=== PATIENT | male | born 1995 | race Caucasian/White ===

== ENCOUNTER 2023-07-02 05:58 | Observation (INO) ==
--- NOTE | 2023-06-14 15:25 | PAT Medication Instructions ---
Medication Instructions Date of Service June 14, 2023 Home Medications ascorbic acid (vitamin C) 500 mg tablet (Vitamin C) 500 mg PO QAM garlic 100 mg tablet 100 mg PO QAM multivitamin 1 tab PO QAM potassium 99 mg tablet 99 mg PO QAM STOP taking 2 weeks before surgery garlic 100 mg tablet 100 mg PO QAM DO NOT take the morning of surgery ascorbic acid (vitamin C) 500 mg tablet (Vitamin C) 500 mg PO QAM multivitamin 1 tab PO QAM potassium 99 mg tablet 99 mg PO QAM OTHERWISE NOTHING TO EAT OR DRINK AFTER MIDNIGHT Other Notes If you have any questions please call us at [phone] or [phone] or [phone] or [phone]
--- NOTE | 2023-06-17 14:49 | Anesthesiology Consultation ---
Date of Service June 17, 2023 Assessment & Plan (1) Encounter for pre-operative examination: Chart Review Chart Review: Acceptable Risk for Surgery and Patient seen in Pre Admission Testing Per PAT appt on 06/17/23, no recent illness/disease exposures, illness related symptoms, or recent illness/disease positive tests. Will leave to surgeon's discretion if preop Covid testing needed Teaching & Discussion Pre-Anesthesia Teaching/Discussion Notes: Instructed NPO after midnight before surgery,except medications with 15 cc of water. Medication instructions provided according to the PAT guidelines. History Surgery Operation Date: 07/02/23 07:45 Proposed Procedures p L5-S1 Decompression and Fusion - Boris Jesus DO Height/Weight Height: 6 ft 2 in Weight: 101.9 kg Allergies Allergy/AdvReac Type Severity Reaction Status Date / Time No Known Allergies Allergy Verified 06/14/23 14:36 Medications Home Medications Medication Instructions Recorded Confirmed Last Taken ascorbic acid (vitamin C) 500 mg 500 mg PO QAM 06/14/23 06/14/23 Unknown tablet (Vitamin C) garlic 100 mg tablet 100 mg PO QAM 06/14/23 06/14/23 Unknown multivitamin 1 tab PO QAM 06/14/23 06/14/23 Unknown potassium 99 mg tablet 99 mg PO QAM 06/14/23 06/14/23 Unknown Past Medical History Medical History Awareness under anesthesia during wisdom tooth excision Deviated nasal septum Herniated lumbar intervertebral disc Suspected sleep apnea Per patient - depending on position- nasal congestion can occur due to deviated septum so has to breath through mouth; occ snoring - possible witnessed apnea - no sleep study Exercise / Class Metabolic Activity II 4-5 Yardwork/Stairs/Walk up hill (one flight of stairs - no chest pain or SOB ) Past Surgical History Surgical History History of excision of pilonidal cyst History of wisdom tooth extraction Past Anesthesia History No Hx of Anesthesia Complications (with exception to awareness with wisdom extraction ) and No Family Hx of Anesthesia Complications History of PONV No Hx of PONV and No Hx of Motion Sickness Social History Smoking Status: Never smoker Do You Dip or Chew Tobacco: No Hx Alcohol Use: Yes alcohol intake frequency: a few times a month Hx Substance Use: No substance use type: does not use Review of Systems Patient denies chest pain, shortness of breath, dyspnea on exertion, reflux, cough, wheezing, palpitations. No hx of seizures, stroke, [place]. No hx of blood clots or blood transfusions Physical Exam Vital Signs VITALS BP 130/76 P 88 TEMP 98.7 SP02 98% RESP 16 Constitutional no acute distress ENMT Mouth: no TMJ clicking Thyromental Distance: > or= 3.5 Finger Breadths (3.5) Mallampati Class: III Neck + facial hair (advised to shave ); neck extension not limited Respiratory normal respiratory effort; no respiratory distress Auscultation: lungs clear to auscultation bilaterally; no wheezes Cardiovascular Rate/Rhythm: regular rate and regular rhythm Heart Sounds: no murmur Vessels: no carotid bruit Musculoskeletal Spine: no pain with cervical ROM Extremities: extremities normal to inspection Psychiatric Orientation: alert Lab Results Anesthesia Preop Results Results Anesthesia Widget: WBC 7.63 K/ul (4.8-10.8) 06/17/23 Hgb 16.6 g/dl (14.0-18.0) 06/17/23 Hct 48.5 % (42.0-52.0) 06/17/23 Plt 235 K/uL (130-400) 06/17/23 Na 144 mmol/L (136-145) 06/17/23 K 4.2 mmol/L (3.5-5.1) 06/17/23 Cl 108 mmol/L (98-107) H 06/17/23 CO2 30 mmol/L (21-32) 06/17/23 BUN 15 mg/dl (6-23) 06/17/23 Creat 0.86 mg/dl (0.6-1.4) 06/17/23 Glucose Level 98 mg/dl (70-99(Fasting)) 06/17/23 PT 11.8 Seconds (9.0-12.0) 06/17/23 PTT 29 Seconds (21-31) 06/17/23 INR 1.1 (0.9-1.1) 06/17/23 Urine Color Yellow 06/17/23 Urine Appearance Turbid (Clear) A 06/17/23 Urine pH 8.0 (4.5-7.5) H 06/17/23 Urine Specific Novinger 1.019 (1.000-1.030) 06/17/23 Urine Protein Negative (Negative) 06/17/23 Urine Glucose (UA) Negative (Negative) 06/17/23 Urine Ketones Negative (Negative) 06/17/23 Urine Blood Negative (Negative) 06/17/23 Urine Nitrite Negative (Negative) 06/17/23 Urine Bilirubin Negative (Negative) 06/17/23 Urine Urobilinogen Negative (Negative) 06/17/23 Urine Leukocyte Esterase Negative (Negative) 06/17/23 Urine WBC (Auto) 0 /hpf (0-5) 06/17/23 Urine RBC (Auto) 5-10 /hpf (0-4) H 06/17/23 Urine Hyaline Casts (Auto) 0 /lpf (0-5) 06/17/23 Urine Epithelial Cells (Auto) 0-5 /lpf (0-5) 06/17/23 Urine Bacteria (Auto) Negative (Negative) 06/17/23 Blood Type A Positive 06/17/23 Antibody Screen NEGATIVE 06/17/23 Testing Electrocardiogram Date: 06/17/23 Findings: + NSR @ (78bpm) Normal EKG per cardio Chest X-Ray Date: 06/17/23 Findings: + NAD
[2023-07-02] MEDS: LR 60ML/HR IV SCH (06:52)
[2023-07-02] MEDS: GABAPENTIN 900 MG DOSE PO SCH (06:52)
[2023-07-02] MEDS: LR 15ML/HR IV SCH (06:52)
[2023-07-02] MEDS: ACETAMINOPHEN 500 MG TAB PO SCH (06:53)
[2023-07-02] MEDS ORDERED: ONDANSETRON INJ 2 MG/ML 2 ML VIAL ONE (06:53)
[2023-07-02] MEDS ORDERED: MIDAZOLAM HCL 1 MG/ML 2ML VIAL ONE (06:53)
[2023-07-02] MEDS ORDERED: DEXAMETHASONE SOD INJ 4 MG/ML VIAL ONE (06:53)
[2023-07-02] MEDS ORDERED: fentaNYL citrate PF 100 MCG/2 ML VIAL ONE (06:53)
[2023-07-02] MEDS ORDERED: LIDOCAINE 2% 2 ML VIAL/AMP(20MG/ML) INFIL ONE (06:53)
[2023-07-02] MEDS: CeleBREX 200 MG CAP PO SCH (06:53)
[2023-07-02] MEDS ORDERED: ROCURONIUM BROMIDE 10 MG/ML 5 ML VIAL IV ONE (06:53)
[2023-07-02] MEDS ORDERED: PROPOFOL IV EMULSION 10 MG/ML 20 ML VIAL IV ONE ×2 (06:53→09:49)
[2023-07-02] MEDS ORDERED: HYDROmorphone INJ 2 MG/ML SYR/VIAL IV PRN (06:56)
[2023-07-02] MEDS ORDERED: ATROPINE SULFATE 0.1 MG/ML 10ML SYR IV PRN (06:56)
[2023-07-02] MEDS ORDERED: ePHEDrine sulfate 50 MG/ML AMP IV PRN (06:56)
[2023-07-02] MEDS ORDERED: KETAMINE HCL 10MG/ML SYR ONE (07:01)
--- NOTE | 2023-07-02 07:47 | History & Physical Bridge Note ---
Date of Service July 02, 2023 History & Physical Bridge Note I have examined the patient, reviewed the History & Physical and in the interval since the performance of the History & Physical I have noted the following changes of clinical significance: no changes noted
--- NOTE | 2023-07-02 07:48 | History & Physical Report ---
Date of Service July 02, 2023 Assessment & Plan (1) Neurogenic claudication due to lumbar spinal stenosis: Plan: L5-S1 decompression and fusion History of Present Illness Chief Complaint: Back and leg pain Primary Care Provider: NO PCP This is a 27-year-old male presents with chronic persistent back and leg pain Patient's course of nonoperative care is here for surgical invention. Allergies Allergy/AdvReac Type Severity Reaction Status Date / Time No Known Allergies Allergy Verified 07/02/23 06:28 Home Medications Medication Instructions Recorded Confirmed Type ascorbic acid (vitamin C) 500 mg 500 mg PO QAM 06/14/23 07/02/23 History tablet (Vitamin C) garlic 100 mg tablet 100 mg PO QAM 06/14/23 07/02/23 History multivitamin 1 tab PO QAM 06/14/23 07/02/23 History potassium 99 mg tablet 99 mg PO QAM 06/14/23 07/02/23 History Past Med/Surg History Medical History Awareness under anesthesia during wisdom tooth excision Deviated nasal septum Herniated lumbar intervertebral disc Suspected sleep apnea Per patient - depending on position- nasal congestion can occur due to deviated septum so has to breath through mouth; occ snoring - possible witnessed apnea - no sleep study Surgical History History of excision of pilonidal cyst History of wisdom tooth extraction Social History Smoking Status: Never smoker Second Hand Exposure: No; Do You Dip or Chew Tobacco: No; Hx Alcohol Use: Yes Hx Substance Use: No Preferred Language: Grenadian Communication Ability: Effective Fan Blade Truer Required: No Beliefs That Will Affect Care: None Current Living Situation: Spouse Feels Safe at Home: Yes Safety Concerns: Feels Safe At This Time Assistive Devices: Glasses Physical Exam Physical Exam: Patient is alert and oriented Heart regular rhythm Lungs clear Results & Data Results & Data Vital Signs (Past 12 Hours) Vital Signs Temp Pulse Resp BP Pulse Ox O2 Del Method 07/02/23 06:29 36.8 C 87 18 130/89 98 Room Air
[2023-07-02] MEDS: ceFAZolin 2000MG 2,000 MG/15 ML SYR IV SCH ×2 (07:56→15:21)
[2023-07-02] MEDS ORDERED: HYDROmorphone INJ 2 MG/ML SYR/VIAL ONE (08:17)
[2023-07-02] MEDS: ceFAZolin 330 MG/ML 1 GM VIAL ONE (08:32)
[2023-07-02] MEDS: BUPIVACAINE/EPINEPHRINE 0.5% MPF 1:200,000 30 ML VIAL ONE (08:33)
[2023-07-02] MEDS ORDERED: SUGAMMADEX SODIUM 200 MG/2 ML VIAL IV ONE (08:41)
[2023-07-02] MEDS: FLOSEAL HEMOSTATIC MATRIX 10ML TOP ONE (09:34)
--- NOTE | 2023-07-02 09:41 | Operative Report ---
Post Operative Report Pre & Post Diagnosis Operation Date: 07/02/23 07:45 Pre-Op Diagnosis: Neurogenic claudication due to lumbar spinal stenosis, Herniated lumbar intervertebral disc Post-Op Diagnosis: Neurogenic claudication due to lumbar spinal stenosis, Herniated lumbar intervertebral disc I identified the patient and participated in the time-out.: Yes Procedure Operation Date: 07/02/23 07:45 Actual Procedures #1 lumbar decompression bilateral medial facetectomies and foraminotomies L4-5 L5-S1. #2 posterior spinal fusion L5-S1. #3 placed posterior instrumentation L5-S1. #4 interbody fusion L5-S1. #5 placement of Spira 14 x 26 mm x 2 at L5- S1. #6 placement locally harvested morselized autograft in the posterior gutters. #7 placement infuse collagen sponge combined with Koros in the posterior gutters and interbody space. Surgeon Boris Jesus DO Certified Welder Agapito Morales Estimated Blood Loss 100 Findings Consistent with Post-Op Diagnosis Specimens None Indications This is a 27-year-old male presents above-mentioned diagnosis after failed course of nonoperative care is here for surgical invention. Description of Procedure Patient met with identified informed consent obtained. Patient was then taken to the operative suite underwent patient placed in a prone position on the Gagan table atop the Waldemar frame. All bony prominences well-padded eyes inspected to ensure no external pressure placed upon the. This point lumbar spine was prepped and draped in a sterile fashion. Sharp dissection with the assistance of Bovie cautery performed down to and exposing the lamina transverse processes of L5 and the sacral ala bilaterally. From caudal cephalad fashion complete laminectomy L5 partial laminectomy of L4 was performed including bilateral medial facetectomies and foraminotomies addressing severe spinal stenosis as well as disc herniation on the right. After complete decompression pedicle screws were placed in L5-S1 levels bilaterally with assistance of fluoroscopy in the process hilda placed. By way of a transforaminal approach on the right discectomy of L5-S1 was performed endplates guided to subcortically bone and a 14 x 26 mm Spira cage filled with Koros tapped into position. Then proceeded to the left transforaminal region completed the discectomy curetted the endplates to subcortical bleeding bone and placed a second 14 x 26 mm Spira cage with Koros into position. The rods were then compressed locked in final position bilaterally. The transverse processes of L5-S1 levels burred to subcortical bleeding bone. Infuse collagen sponge combined with Koros and local autograft placed in the posterior gutters. 15 round MAGALYS inserted. The incision was then closed with 1 Vicryl fascia 2-0 Vicryl subcutaneously 4 Monocryl for final skin closure. Steri-Strips sterile dressings placed. Patient waken taken PACU stable condition. Please note spinal cord monitoring was utilized at the procedure no changes noted. Lastly Agapito Morales was present at the entire surgery involved the patient positioning complex portion of the surgery and final skin closure. I attest to the content of the Intraoperative Record and any orders documented therein. Any exceptions are noted below.
[2023-07-02] MEDS: fentaNYL citrate PF 100 MCG/2 ML VIAL IV PRN (10:25)
[2023-07-02] MEDS: ONDANSETRON INJ 2 MG/ML 2 ML VIAL IV PRN (10:28)
--- NOTE | 2023-07-02 10:39 | Fluoroscopy Report ---
FL lumbar spine 2-3V CLINICAL HISTORY: L5-S1 DECOMP/FUSION COMPARISON STUDY: None. FLUOROSCOPY TIME: 20 seconds. Ka, r: 16.06 mGy FLUOROSCOPIC IMAGES: 2 FINDINGS: Fluoroscopy was provided during L5-S1 posterior decompression, discectomy and bilateral ped icle screw fusion. Hardware is intact. There are no unexpected radiopaque foreign bodies. IMPRESSION: Fluoroscopy provided during L5-S1 posterior decompression, discectomy and fusion. ACT 112: Negative or not required by law. Electronically signed by: Jacobo Ji M.D. 07/02/2023 10:38 AM
[2023-07-02] MEDS ORDERED: ONDANSETRON 4 MG OD TAB PO PRN (11:10)
[2023-07-02] MEDS ORDERED: ALUMINUM/MAGNESIUM SUSP 30 ML UDC PO PRN (11:10)
[2023-07-02] MEDS ORDERED: bisacodyL 10 MG SUPP PR PRN (11:10)
[2023-07-02] MEDS ORDERED: ACETAMINOPHEN 1,000 MG/100 ML VIAL IV PRN (11:10)
[2023-07-02] MEDS ORDERED: ONDANSETRON INJ 2 MG/ML 2 ML VIAL IV PRN (11:10)
[2023-07-02] MEDS ORDERED: diphenhydrAMINE Capsule 25 MG CAP PO PRN (11:10)
[2023-07-02] MEDS ORDERED: HYDROmorphone INJ 1 MG/ML SYRINGE IV PRN (11:10)
[2023-07-02] MEDS ORDERED: METOCLOPRAMIDE HCL INJ 5 MG/ML 2 ML VIAL IV PRN (11:10)
[2023-07-02] MEDS ORDERED: NALOXONE HCL 0.4 MG/1 ML VIAL/CARP IV PRN (11:10)
[2023-07-02] MEDS ORDERED: LORazepam 0.5 MG TAB PO PRN (11:10)
[2023-07-02] MEDS ORDERED: DO NOT ADMINISTER FLU VACCINE PRN (11:10)
[2023-07-02] MEDS ORDERED: traMADol HCL 50 MG TABLET PO PRN (11:10)
[2023-07-02] MEDS ORDERED: PROMETHAZINE HCL 12.5 MG in SODIUM CHLORIDE 0.9% 50 ML IV PRN (11:10)
[2023-07-02] MEDS ORDERED: HYDROmorphone INJ 0.5 MG/0.5 ML SYR IV PRN (11:10)
[2023-07-02] MEDS ORDERED: SOD PHOSPHATE/SOD BIPHOSPHATE ENEMA 132 ML BTL PR PRN (11:10)
[2023-07-02] MEDS ORDERED: ACETAMINOPHEN 500 MG TAB PO PRN (11:10)
[2023-07-02] MEDS ORDERED: MAGNESIUM HYDROXIDE SUSP 30 ML UDC PO PRN (11:10)
[2023-07-02] MEDS ORDERED: FAMOTIDINE 20 MG TAB PO PRN (11:10)
[2023-07-02] MEDS ORDERED: LORazepam 0.5 MG in SYRINGE 0.25 ML IV PRN (11:10)
[2023-07-02] MEDS ORDERED: DO NOT ADMINISTER PNEUMOCOCCAL VACCINE PRN (11:10)
[2023-07-02] MEDS ORDERED: hydrOXYzine HCl 25 MG TAB PO PRN (11:10)
[2023-07-02] MEDS: KETOROLAC 30 MG/ML VIAL IV SCH (11:34)
[2023-07-02] MEDS: LACTATED RINGER'S 1,000 ML IV SCH (11:34)
[2023-07-02] MEDS: oxyCODONE HCL IR 5 MG TAB (IMMEDIATE RELEASE) PO PRN (15:26)
[2023-07-02] MEDS: DOCUSATE SODIUM/SENNA 50/8.6MG TAB PO SCH (21:15)
[2023-07-03] MEDS: POLYETHYLENE (MIRALAX) 17 GM PACK PO SCH (05:20)
[2023-07-03 07:38] LABS: Basophils # (auto) 0.03 K/uL (0.00-0.20); Basophils % (auto) 0.2 %; Eosinophils # (auto) 0.03 K/uL (0.00-0.50); Eosinophils % (auto) 0.2 %; Hematocrit (blood only) 45.7 % (42.0-52.0); Hemoglobin 15.3 g/dl (14.0-18.0); Immature Granulocytes # (auto) 0.26 K/uL (0.01-0.20); Immature Granulocytes % (auto) 1.4 %; Lymphocytes # (auto) 2.41 K/uL (1.20-3.40); Lymphocytes % (auto) 13.2 %; Mean Corpuscular Hemoglobin 30.8 pg (25.0-34.0); Mean Corpuscular Hgb Conc 33.5 g/dL (32.0-36.0); Mean Corpuscular Volume 92.1 fL (80.0-100.0); Monocytes # (auto) 1.71 K/uL (0.11-0.59); Monocytes % (auto) 9.4 %; Neutrophils # (auto) 13.81 K/uL (1.40-6.50); Neutrophils % (auto) 75.6 %; Platelet Count 221 K/uL (130-400); RDW Coefficient of Variation 12.7 % (11.5-14.5); RDW Standard Deviation 42.6 fL (36.4-46.3); Red Blood Count 4.96 M/uL (4.70-6.10); White Blood Count 18.25 K/ul (4.8-10.8)
[2023-07-03 08:01] LABS: Anion Gap 6 (3-11); Blood Urea Nitrogen 16 mg/dl (6-23); Calcium 9.2 mg/dl (8.6-10.3); Carbon Dioxide 28 mmol/L (21-32); Chloride 108 mmol/L (98-107); Creatinine Clr Calc Pharmacy 154.7 ml/min; Est GFR (African American) 133.9 ml/min; Est GFR (Non-African American) 115.5 ml/min; Glucose 108 mg/dl (70-99(Fasting)); Sodium 142 mmol/L (136-145)
[2023-07-03] MEDS: MULTIVITAMIN TAB PO SCH (08:21)
[2023-07-03] MEDS: dexAMETHasone 6 MG in SYRINGE 0 ML IV SCH (08:22)
[2023-07-03] MEDS: ASCORBIC ACID 500 MG TAB PO SCH (08:22)
--- NOTE | 2023-07-03 08:40 | Orthopedic Progress Note ---
Date of Service July 03, 2023 Assessment & Plan (1) Neurogenic claudication due to lumbar spinal stenosis: Plan: Jack is. Postoperative day 1 status post TLIF L5-S1. He is doing well. Will start physical therapy today. DVT prophylaxis is in the form teds and SCDs. Continue with aggressive bowel regimen. Maintain MAGALYS drain. Anticipate discharge home Wednesday Admission and Anticipated Discharge Date Admission Date: July 02, 2023 Subjective Jack is postoperative day 1 status post TLIF L5-S1. He is doing well. No radicular leg pain. Back pain is controlled. MAGALYS drain output last shift was 40 cc. Review of Systems Review of Systems: All systems reviewed & are unremarkable except as noted in HPI & below Physical Exam Physical Exam: He sitting in a chair eating breakfast in no acute distress Alert and oriented x 3 Lumbar dressing is clean dry and intact with functioning MAGALYS drain calf soft and nontender bilaterally strength intact bilateral lower extremities Results & Data Vital Signs (Past 12 Hours) Vital Signs Temp Pulse Resp BP Pulse Ox O2 Del Method 07/03/23 07:38 37.1 C 75 16 121/71 100 Room Air 07/03/23 04:10 36.8 C 75 16 115/69 99 Room Air 07/02/23 23:13 36.9 C 83 16 120/69 97 Room Air
[2023-07-03] MEDS ORDERED: NON-FORMULARY MEDICATION (Potassium 99 mg Tablet) PO SCH (09:00)
[2023-07-03] MEDS ORDERED: GARLIC 100 MG PO SCH (09:00)
--- NOTE | 2023-07-04 08:28 | Orthopedic Progress Note ---
Date of Service July 04, 2023 Assessment & Plan (1) Neurogenic claudication due to lumbar spinal stenosis: Plan: Jack is postoperative day 2 status post TLIF L5-S1. Will continue with physical therapy and ambulation today. Continue with pain control. Maintain MAGALYS drain. DVT prophylaxis is in the form teds and SCDs. Anticipate discharge home tomorrow Admission and Anticipated Discharge Date Admission Date: July 02, 2023 Subjective Jack is postoperative day 2 status post TLIF L5-S1. Back pain is controlled. Radicular leg pain has resolved. He had a bowel movement. MAGALYS drain output last shift was 20 cc. Yesterday he has been Amling in the halls over 20 times. Review of Systems Review of Systems: All systems reviewed & are unremarkable except as noted in HPI & below Physical Exam Physical Exam: Sitting in a chair eating breakfast in no acute distress Alert and oriented x 3 Lumbar dressing is clean dry and intact with functioning MAGALYS drain calf soft and nontender bilaterally strength intact bilateral lower extremities Results & Data Vital Signs (Past 12 Hours) Vital Signs Temp Pulse Resp BP Pulse Ox O2 Del Method 07/04/23 07:58 37.2 C 81 16 135/78 99 Room Air
--- NOTE | 2023-07-05 09:45 | Discharge Summary ---
Date of Service July 05, 2023 Admission HPI Per Admitting Provider This is a 27-year-old male presents with chronic persistent back and leg pain Patient's course of nonoperative care is here for surgical invention. Admission Exam (Per Admitting) Constitutional WD/WN, vitals as above Eyes normal visual perez by confrontation ENMT external ear and nose normal, oropharynx normal Neck normal visual inspection Respiratory normal respiratory effort Cardiovascular Extremities: normal capillary refill Gastrointestinal (Abdomen) Inspection/Auscultation: abdomen normal to inspection Musculoskeletal Spine: + pain with thoraco-lumbar ROM Extremities: extremities normal to inspection and strength 5/5 throughout Skin no rashes, warm and dry Neurologic normal touch/pain/proprioception and moves all extremities Psychiatric A+Ox3, euthymic affect Eye Contact: good eye contact Discharge Data Procedures Performed Operation Date: 07/02/23 07:45 Actual Procedures p L5-S1 Decompression and Fusion, Spinal Cord Monitoring(Not Applicable) - Boris Jesus DO Hospital Course (1) Neurogenic claudication due to lumbar spinal stenosis: Jack is being discharged home postoperative day 3 status post TLIF L5-S1. He had an uncomplicated postoperative course. Pain has been controlled. Lab values stable. He had a bowel movement. He is made great progress daily and physical therapy as well as ambulating the hallways. Discharge Instructions ACTIVITY RECOMMENDATIONS: SELF CARE INSTRUCTIONS AFTER THORACIC/LUMBAR FUSIONS 1. You may walk to your tolerance. It is good exercise for your legs and back. Expect some back and intermittent leg aches and pains. 2. You may perform "counter-top" level activities (make a sandwich, meron with a project, etc.). 3. No bending or lifting of more than 10 pounds or back twisting of any nature (roll like a log when turning in bed). 4. You may ride in a car for 20-30 minutes at a time. No driving until after your first visit with your doctor. 5. Frequent changes of position and restricting sitting to 30 minutes at a time will help limit the amount of back spasms and stiffness you may experience. 6. You may discontinue the use of ambulatory aids (cane, crutches, etc.) once your strength and confidence allow. 7. You may spring upholsterer the shower and let water strike your incision when you arrive home at least once daily. Do not take a tub bath, sit in a hot tub or go into a swimming pool until after your first recheck in the office. SPECIAL CARE INSTRUCTIONS: VERY IMPORTANT TO READ AND REVIEW A. Your surgical incision has been closed with a cosmetic suture under the skin that will dissolve in about 6 weeks. In 14 days, you can use a pair of clean scissors and cut the suture that is left outside of the skin at the ends of your incision. 1. The small skin tapes can be removed 7 days after surgery if they have not fallen off by that point. 2. You may keep the wound open to air as much as possible to promote healing after post-op day number 5 unless told otherwise by your doctor. 3. If you think the wound looks like it is becoming infected (redness or worsening drainage) and/or you are experiencing fever, chill or worsening back pain and muscle spasms, contact the office so that we may evaluate you as soon as possible. B. Complications are uncommon, but please contact us if you have any signs or symptoms of: 1. wound infection (fever higher than 102.5 degrees F, redness, separation of wound, drainage, or increasing pain from the incision) 2. blood clots in legs (pain, swelling, redness and warmth in legs) 3. urinary tract infection (fever higher than 102.5 degrees F, burning upon urination or increased frequency of urination) 4. nerve problems (inability to walk on your toes or heels, numbness, loss of bowel or bladder control) 5. any other symptoms that concern you C. Please call the office at if you have any concerns or questions about your operation or recovery. D. No smoking! Smoking drastically decreases the chance of a solid fusion. E. Do not take any anti-inflammatory medications (Indocin, Advil, Motrin, Aspirin, Naprosyn, etc.) as these may inhibit the chance of a solid fusion. Tylenol is okay to take for pain. MANAGING PAIN AFTER SPINAL SURGERY 1. Narcotic medication is intended for short-term use and will be provided for surgical pain. Surgical pain usually lasts for a period of 4-6 weeks. Narcotic medication includes Percocet, Vicodin, Darvocet, Tylenol #3 or Lortab. 2. Longer-term pain is more appropriately treated with non-narcotic medication such as Tylenol ES. 3. Muscle spasm is not appropriately treated with narcotics. Muscle relaxers such as Soma, Flexeril or Skelaxin can be used along with Tylenol ES. 4. Remember that we all live with some "aches and pains". This is not unusual or uncommon after an injury or as we get older. a. Back pain is expected and may include muscle spasms for 4 to 6 weeks after surgery. The pain should gradually improve. If the pain worsens for no apparent reason, please contact the office. b. Intermittent leg pain may also be experienced and should not be concerned about unless it worsens for no apparent reason. If so, please contact the office. 5. We will provide appropriate medication within the normal guidelines of their prescribed use. We will also be very cautious and aware of potential abuse and extended duration of patients' medication needs. a. Pain medications are for your comfort and to assist with sleep and rest so that the tissue can heal. They are not provided in order to return to normal activity and should not be used through the day. To do so or worsening pain at night can result from ongoing tissue damage and development of tolerance to the prescribed medicine. 6. Please allow 2-3 days to process refills. Prescriptions will not be mailed but must be picked up at the office. FOLLOW UP VISIT: Keep your scheduled follow-up appointment. Any questions, please call the office at .
== END 2023-07-05 11:30 | disposition home or self-care (01) ==
LOC: ASU 05:58 → INTOOBSV 09:43 → 3E 09:43
DX: M48.062 Spinal stenosis, lumbar region with neurogenic claudication; M51.26 Other intervertebral disc displacement, lumbar region